=== PATIENT | male | born 1950 | race Caucasian/White ===

== ENCOUNTER 2021-06-02 08:50 | Day surgery (SDC) | payer MEDICARE, OTHER ==
[~2021-06-02] VITALS: Ht 175.3 cm; Wt 93.0 kg
--- NOTE | ~2021-06-02 | OR ---
[facility] [address], [place] [address] Draft DATE OF OPERATION: 06/02/2021 SURGEON: Gustavo John MD PREOPERATIVE DIAGNOSIS: Left carpal tunnel syndrome. POSTOPERATIVE DIAGNOSIS: Left carpal tunnel syndrome. PROCEDURE PERFORMED: Left carpal tunnel release. EMPLOYMENT AND CLAIMS AIDE: None. ANESTHESIA: Lizzy block. TOURNIQUET TIME: 20 minutes. BRIEF HISTORY: Roberto is a 71-year-old gentleman with pain and numbness in his hand. Nerve conduction studies consistent with significant carpal tunnel. Risks and benefits of operative treatment discussed with him. He elected to proceed. DESCRIPTION OF PROCEDURE: Once consent was obtained, he was taken to the operating room. After adequate anesthesia he was placed on operating room table. All downside pressure points well padded. The arm was prepped and draped in a standard sterile fashion. A 1.5 cm incision was made in the distal wrist crease carried through skin and subcutaneous tissue. The transverse carpal ligament was identified. No significant palmaris longus was identified. The transverse carpal ligament was dissected free of overlying soft tissue under loupe magnification. It was then released approximately a cm and distally a 1.5 cm which was the end of the ligament itself. The bleeders were cauterized as we went since he was on warfarin. He was then copiously irrigated and closed with 3-0 nylon. He was injected with 5 mL of 0.25% plain Marcaine and the arm was dressed with bacitracin, Adaptic, 4 x 8s and gauze. He tolerated the procedure well. All sponge, needle, and instrument PATIENT NAME: ROBERTO HANEY OPERATIVE REPORT DATE OF : 52 REPORT #: [id number] PHYSICIAN: GUSTAVO JOHN MD PCP: STELLA HARRIS MD REPORT IS CONFIDENTIAL AND NOT TO BE RELEASED WITHOUT AUTHORIZATION [address] [place] [address] Draft counts were correct. Gustavo John MD BA/DANIEL /[id number] Copies: ~ PATIENT NAME: ROBERTO HANEY OPERATIVE REPORT DATE OF : 52 REPORT #: [id number] PHYSICIAN: GUSTAVO JOHN MD PCP: STELLA HARRIS MD REPORT IS CONFIDENTIAL AND NOT TO BE RELEASED WITHOUT AUTHORIZATION
[~2021-06-02 08:50] MED LIST: ASPIR-LOW81 MG PO; DAILY MULTIPLE1 EACH PO; DULCOLAX5 MG PO; FUROSEMIDE20 MG PO; LISINOPRIL20 MG PO; MIRALAX17 GM PO; VITAMIN C1000 M1 PO
[2021-06-02] MEDS ORDERED: TOPROL XL50 MG PO (09:04)
[2021-06-02] MEDS ORDERED: NORVASC5 MG PO (09:05)
[2021-06-02] MEDS ORDERED: FLECAINIDE ACET50 MG PO (09:06)
--- NOTE | 2021-06-02 09:10 | NUR ---
TRIPPED ON LOG 06/01/21 FELL R SIDE ON ELBOW HAS BANDAID ON.
[2021-06-02] MEDS ORDERED: HYDROCODON-ACE1 EA10 PO (11:05)
--- NOTE | 2021-06-02 11:16 | NUR ---
06/02/21 1115 Jas,Leyda 1103 PT ARRIVED TO PACU ON 6L VIA MASK, VSS. PT WAKES AND IS REORIENTED TO PACU. PT DENEIS PAIN AND NAUSEA. 1105 O2 REMOVED. 1115 HOB INCREASED AND SIPPING WATER.
== END 2021-06-02 11:40 | disposition home or self-care (01) ==
LOC: DS 08:50
PROVIDERS: ATTEND Specialist
PROC: 01N50ZZ Release Median Nerve, Open Approach (ICD-10-PCS; principal; 2021-06-02 11:45)
DX: G56.02 Carpal tunnel syndrome, left upper limb (principal); M54.12 Radiculopathy, cervical region; I10 Essential (primary) hypertension; G47.30 Sleep apnea, unspecified; Z88.8 Allergy status to other drugs, medicaments and biological substances; Z91.048 Other nonmedicinal substance allergy status; Z98.1 Arthrodesis status; Z87.891 Personal history of nicotine dependence; Z95.810 Presence of automatic (implantable) cardiac defibrillator
CPT/HCPCS: J0690; J2704